=== PATIENT | male | born 1985 | race Caucasian/White ===

== ENCOUNTER 2016-08-16 11:19 | Emergency (ER) | payer OTHER ==
[~2016-08-16] VITALS: Ht 177.8 cm; Wt 80.7 kg
[2016-08-16 12:05] LABS: BASOPHIL % 0.4 % (0-2); PLATELET COUNT 142 x10^3mcL (130-400); RED CELL DISTRIBUTION WIDTH 13.5 % (11.5-14.5)
[2016-08-16 12:42] LABS: CALCIUM 8.8 mg/dL (8.5-10.1); CARBON DIOXIDE 31.2 mmol/L (21-32); CHLORIDE SERUM 105 mmol/L (98-107); CREATININE SERUM 1.1 mg/dL (0.7-1.3); GFR1 > 60 mL/min; GLUCOSE SERUM 70 mg/dL (74-106); SODIUM SERUM 143 mmol/L (136-145)
[2016-08-16 12:44] LABS: microscopic required? NO
[2016-08-16 12:46] LABS: ALBUMIN 3.8 g/dL (3.4-5.0); ALKALINE PHOSPHATASE 49 U/L (46-116); ALT/SGPT 20 U/L (16-63); AST/SGOT 13 U/L (15-37); BILIRUBIN TOTAL 0.4 mg/dL (0.20-1.00)
[2016-08-16 12:50] LABS: UA SPECIFIC GRAVITY 1.015 (1.005-1.035); urine erythrocyte NEGATIVE (NEGATIVE)
[2016-08-16 15:06] VITALS: BP 104/59
== END 2016-08-16 15:06 | disposition home or self-care (01) ==
LOC: ED 11:19
PROVIDERS: Emergency Medicine
DX: R10.31 Right lower quadrant pain (principal); R03.0 Elevated blood-pressure reading, without diagnosis of hypertension; Z79.899 Other long term (current) drug therapy
CPT/HCPCS: J1885; J2270; J2405; J7030

== ENCOUNTER 2018-01-02 11:12 | Emergency (ER) | payer OTHER ==
[~2018-01-02] VITALS: Ht 180.3 cm; Wt 81.6 kg
[2018-01-02 11:23] VITALS: Ht 180.3 cm; Wt 81.6 kg
[2018-01-02 12:10] VITALS: BP 130/77
== END 2018-01-02 12:10 | disposition home or self-care (01) ==
LOC: ED 11:12
DX: S39.012A Strain of muscle, fascia and tendon of lower back, initial encounter (principal); X58.XXXA Exposure to other specified factors, initial encounter; Y93.89 Activity, other specified; Y92.89 Other specified places as the place of occurrence of the external cause; Y99.8 Other external cause status
CPT/HCPCS: J1885

== ENCOUNTER 2018-08-13 15:38 | Emergency (ER) | payer OTHER ==
[~2018-08-13] VITALS: Ht 177.8 cm; Wt 82.1 kg
[2018-08-13 15:45] VITALS: BP 126/74; Ht 177.8 cm; Wt 82.1 kg
== END 2018-08-13 17:56 | disposition home or self-care (01) ==
LOC: ED 15:38
DX: H60.91 Unspecified otitis externa, right ear (principal)

== ENCOUNTER 2019-03-28 09:17 | Emergency (ER) | payer OTHER ==
[~2019-03-28] VITALS: Ht 180.3 cm; Wt 80.7 kg
[2019-03-28 09:25] VITALS: Ht 180.3 cm; Wt 80.7 kg
[2019-03-28 10:56] VITALS: BP 122/75
== END 2019-03-28 10:56 | disposition home or self-care (01) ==
LOC: ED 09:17
DX: S13.4XXA Sprain of ligaments of cervical spine, initial encounter (principal); S39.012A Strain of muscle, fascia and tendon of lower back, initial encounter; V49.49XA Driver injured in collision with other motor vehicles in traffic accident, initial encounter; Y93.I9 Activity, other involving external motion; Y92.413 State road as the place of occurrence of the external cause; Y99.8 Other external cause status